=== PATIENT | female | born 1970 | race Two or more races ===

== ENCOUNTER → 2022-03-09 | Emergency (ER) | payer BC ==
[~2022-03-09] VITALS: Ht 162.6 cm; Wt 5.4 kg
[~2022-03-09] MED LIST: PROPRANOLOL HCL10 MG PO; SYNTHROID50 MCG PO
== END | disposition left against medical advice (07) ==
LOC: ER 14:48
DX: Z53.21 Procedure and treatment not carried out due to patient leaving prior to being seen by health care provider (principal)